=== PATIENT | male | born 1955 | race Two or more races ===

== ENCOUNTER 2021-02-21 13:55 | Outpatient (CLI) | payer OTHER | END 2021-02-21 14:10 | disposition home or self-care (01) | LOC: PPH VACUNA 13:55 | PROVIDERS: ATTEND Emergency Medicine Pediatric Emergency Medicine | DX: Z23 Encounter for immunization (principal) ==

== ENCOUNTER 2021-07-20 10:00 | Outpatient (CLI) | payer OTHER | END 2021-07-20 10:10 | disposition home or self-care (01) | LOC: PPH VACUNA 10:00 | PROVIDERS: ATTEND Emergency Medicine Pediatric Emergency Medicine | DX: Z23 Encounter for immunization (principal) ==